=== PATIENT | female | born 1995 | race Caucasian/White ===

== ENCOUNTER 2020-01-01 00:01 | Inpatient (IN) ==
[2020-01-01] MEDS ORDERED: BUTORPHANOL 2 MG/ML VIAL IV PRN (00:10)
[2020-01-01] MEDS ORDERED: MEPERIDINE 50 MG/1 ML VIAL IV PRN (00:10)
[2020-01-01 01:07] LABS: Basophils % 0.2 % (0.0-0.8); Eosinophils # 0.1 10*3/uL (0.0-0.87); Eosinophils % 0.5 % (0.00-10.9); Hematocrit 34.9 VOL% (35.7-47.0); Hemoglobin 11.5 GM/DL (12.0-16.0); Immature Granulocytes % 0.7 %; Immature Granulocytes Absolute 0.08 #; Lymphocytes # 2.2 10*3/uL (1.4-4.0); Lymphocytes % 19.5 % (21.3-54.2); Mean Corpuscular Volume 87.9 FL (87-102); Mean Platelet Volume 11.2 FL (9.6-12.0); Monocytes % 7.2 % (1.7-12.7); Neutrophils % 71.9 % (38.7-73.9); Platelet Count 264 T/CUMM (130-400); Red Blood Count 3.97 MC/CUMM (3.8-5.5); Red Cell Distribution Width 13.3 % (9.3-17.3); White Blood Count 11.4 T/CUMM (4-12)
[2020-01-01 01:20] LABS: INR 0.9; PT Patient Result 9.5 SECS (9.6-12.2); Partial Thromboplastin Time 25.2 SECS (20.8-36.0)
[2020-01-01 01:27] LABS: Alanine Aminotransferase 12 U/L (13-56); Albumin 2.4 G/DL (3.4-5.0); Alkaline Phosphatase 113 U/L (45-117); Aspartate Amino Transferase 13 U/L (0-37); Bilirubin,Total < 0.39 MG/DL (0.2-1.0); Blood Urea Nitrogen 11 MG/DL (7-18); Calcium 9.1 MG/DL (8.5-10.1); Estimated Glom Filtration Rate 152 ML/MIN; Glucose 95 MG/DL (74-106); Total Protein 6.8 G/DL (6.4-8.3)
[2020-01-01] MEDS: ONDANSETRON 4 MG/2 ML VIAL IV PRN ×2 (06:20→14:40)
[2020-01-01] MEDS: LACTATED RINGERS 1,000 ML IV SCH ×2 (08:14→10:28)
[2020-01-01] MEDS ORDERED: diphenhydrAMINE 50 MG/1 ML VIAL IV PRN ×2 (08:19)
[2020-01-01] MEDS ORDERED: CITRIC ACID/SODIUM CITRATE 30 ML UDCUP PO ONE (08:19)
[2020-01-01] MEDS ORDERED: FAMOTIDINE 20 MG/2 ML VIAL IV ONE (08:19)
[2020-01-01] MEDS ORDERED: hydrOXYzine HCL 25 MG/1 ML VIAL IM PRN (08:19)
[2020-01-01] MEDS ORDERED: LACTATED RINGERS 1,000 ML IV ONE (08:19)
[2020-01-01] MEDS ORDERED: PROMETHAZINE 25 MG/1 ML VIAL IM ONE (08:19)
[2020-01-01] MEDS ORDERED: ePHEDrine 50 MG/ML AMP IV PRN (08:19)
[2020-01-01] MEDS ORDERED: NALOXONE 0.4 MG/ML VIAL IV PRN (08:19)
[2020-01-01] MEDS ORDERED: hydrALAZINE 20 MG/1 ML VIAL ONE (08:25)
[2020-01-01] MEDS ORDERED: hydrALAZINE 20 MG/1 ML VIAL IV ONE (08:28)
[2020-01-01] MEDS ORDERED: OXYTOCIN/LR 20 UNIT/1,000 ML BAG IV SCH (08:30)
[2020-01-01] MEDS ORDERED: fentaNYL 2 MCG/ROPIV 0.2% EPID 100 ML EPIDURAL SCH (08:30)
[2020-01-01 11:12] LABS: Apearance,Urine CLEAR (Clear); Bilirubin,Urine Negative (Negative); Blood, Urine Negative (Negative); Glucose,Urine (UA) Negative (Negative); Ketones,Urine Negative (Negative); Mucus,Urine Occasional /LPF (Occasional); Nitrite,Urine Negative (Negative); Protein,Urine Negative; RBC,Urine <1 /HPF (0-4); Urine Color Yellow (Yellow); Urine Specific Gravity 1.009 (1.001-1.035); Urine Urobilinogen < 2.0 EU/DL (0.2-1.0)
[2020-01-01] MEDS ORDERED: CARBOPROST TROMETHAMINE 250 MCG/ML AMP IM ONE (14:53)
[2020-01-01] MEDS ORDERED: miSOPROStoL 200 MCG TABLET ONE (14:53)
[2020-01-01 16:43] LABS: Cord Arterial Blood HCO3 16.1 MMOL/L
[2020-01-01] MEDS ORDERED: LANOLIN 50% CREAM 0.3 OZ TUBE TOP PRN (16:54)
[2020-01-01] MEDS ORDERED: MEASLES/MUMPS/RUBELLA VACCINE 0.5 ML VIAL SUBCUT ONE (16:54)
[2020-01-01] MEDS ORDERED: BISACODYL 10 MG SUPP RECTAL PRN (16:54)
[2020-01-01] MEDS ORDERED: WITCH HAZEL PADS 100/JAR TOP PRN (16:54)
[2020-01-01] MEDS ORDERED: BENZOCAINE 20%/MENTHOL 0.5% SPRAY 56 GM CAN TOP PRN (16:54)
[2020-01-01] MEDS ORDERED: OXYTOCIN/LR 20 UNIT/1,000 ML BAG IV ONE (16:54)
[2020-01-01] MEDS ORDERED: DIPH/TET/ACEL PERT BOOSTER VACCINE 0.5 ML VIAL IM ONE (16:54)
[2020-01-01] MEDS ORDERED: ACETAMINOPHEN 325 MG TABLET PO PRN (16:54)
[2020-01-01] MEDS ORDERED: HYDROCORTISONE 2.5% RECTAL CREAM 30 GM TUBE TOP PRN (16:54)
[2020-01-01] MEDS ORDERED: oxyCODONE/ACETAMINOPHEN 5-325 MG TABLET PO PRN (16:54)
[2020-01-01] MEDS ORDERED: RHO(D) IMMUNE GLOBULIN 300 MCG SYRINGE IM ONE (16:54)
[2020-01-01] MEDS: oxyCODONE/ACETAMINOPHEN 5-325 MG TABLET PO PRN ×2 (17:22→23:00)
[2020-01-01] MEDS: IBUPROFEN 800 MG TABLET PO PRN (18:28)
[2020-01-01] MEDS: DOCUSATE SODIUM 100 MG CAPSULE PO SCH (21:17)
[2020-01-02] MEDS: IBUPROFEN 800 MG TABLET PO PRN ×3 (04:05→17:28)
[2020-01-02 05:05] LABS: Basophils % 0.2 % (0.0-0.8); Eosinophils # 0.1 10*3/uL (0.0-0.87); Eosinophils % 0.6 % (0.00-10.9); Hematocrit 31.1 VOL% (35.7-47.0); Hemoglobin 10.1 GM/DL (12.0-16.0); Immature Granulocytes % 0.8 %; Lymphocytes # 2.4 10*3/uL (1.4-4.0); Lymphocytes % 17.8 % (21.3-54.2); Mean Corpuscular HGB Conc 32.5 GM/DL (32-36); Mean Corpuscular Volume 88.6 FL (87-102); Mean Platelet Volume 11.2 FL (9.6-12.0); Monocytes % 6.8 % (1.7-12.7); Neutrophils % 73.8 % (38.7-73.9); Platelet Count 216 T/CUMM (130-400); Red Blood Count 3.51 MC/CUMM (3.8-5.5); Red Cell Distribution Width 13.5 % (9.3-17.3); White Blood Count 13.3 T/CUMM (4-12)
[2020-01-02] MEDS: DOCUSATE SODIUM 100 MG CAPSULE PO SCH ×2 (08:47→20:26)
[2020-01-02] MEDS: oxyCODONE/ACETAMINOPHEN 5-325 MG TABLET PO PRN (22:13)
[2020-01-03 07:26] VITALS: BP 157/91
[2020-01-03] MEDS: DOCUSATE SODIUM 100 MG CAPSULE PO SCH (09:02)
== END 2020-01-03 13:40 | disposition home or self-care (01) | DRG 807 ==
LOC: N.LDOUT 00:01 → N.LD 00:03 → N.OB 20:23
PROVIDERS: ADMIT Obstetrics & Gynecology; ATTEND Obstetrics & Gynecology

== ENCOUNTER 2022-05-07 11:09 | Inpatient (IN) ==
[2022-05-07] MEDS ORDERED: MEPERIDINE 50 MG/1 ML VIAL IV PRN (11:17)
[2022-05-07] MEDS ORDERED: ONDANSETRON 4 MG/2 ML VIAL IV PRN (11:17)
[2022-05-07] MEDS ORDERED: LIDOCAINE 1% 50 ML VIAL MISC INJ ONE (11:17)
[2022-05-07] MEDS ORDERED: METHYLERGONOVINE 0.2 MG/1 ML AMP IM PRN (11:17)
[2022-05-07] MEDS ORDERED: OXYTOCIN/LR 20 UNIT/1,000 ML BAG IV ONE (11:17)
[2022-05-07] MEDS ORDERED: CARBOPROST TROMETHAMINE 250 MCG/ML AMP IM PRN (11:17)
[2022-05-07] MEDS ORDERED: TRANEXAMIC ACID 1,000 MG in SODIUM CHLORIDE 0.9% 100 ML IV PRN (11:17)
[2022-05-07] MEDS ORDERED: BUTORPHANOL 2 MG/ML VIAL IV PRN (11:17)
[2022-05-07] MEDS ORDERED: miSOPROStoL 200 MCG TABLET RECTAL PRN (11:17)
[2022-05-07 11:50] LABS: Glucose,Urine (UA) Negative (Negative); Ketones,Urine Negative (Negative); Nitrite,Urine Negative (Negative); Protein,Urine Negative (Negative); Urine Appearance Slightly Cloudy (Clear); Urine Color Yellow (Yellow)
[2022-05-07 11:51] LABS: Bilirubin,Urine Negative (Negative); Blood, Urine Negative (Negative); Urine Urobilinogen 0.2 eU/dL (<2.0)
[2022-05-07 11:55] LABS: Amorphous Crystals,Urine Occasional /HPF (Few); Bacteria,Urine Many /HPF (Few); Mucus,Urine Occasional /LPF (Occasional); Squamous Epithelial Cell,Urine Few /HPF (0-10)
[2022-05-07] MEDS ORDERED: ePHEDrine 50 MG/ML VIAL IV PRN (11:58)
[2022-05-07] MEDS ORDERED: diphenhydrAMINE 50 MG/1 ML VIAL IV PRN (11:58)
[2022-05-07] MEDS ORDERED: PROMETHAZINE 25 MG/1 ML VIAL IM PRN (11:58)
[2022-05-07] MEDS ORDERED: NALOXONE 0.4 MG/ML VIAL IV PRN (11:58)
[2022-05-07] MEDS ORDERED: CITRIC ACID/SODIUM CITRATE 30 ML UDCUP PO ONE (11:59)
[2022-05-07] MEDS ORDERED: FAMOTIDINE 20 MG/2 ML VIAL IV ONE (11:59)
[2022-05-07 12:01] LABS: Protein/Creatinine Ratio,Urine 0.3 RATIO
[2022-05-07] MEDS: LACTATED RINGERS 1,000 ML IV SCH ×3 (12:02→14:31)
[2022-05-07 12:07] LABS: Basophils % 0.2 % (0.0-0.8); Eosinophils % 0.3 % (0.00-10.9); Hematocrit 31.7 VOL% (35.7-47.0); Hemoglobin 10.5 GM/DL (12.0-16.0); Immature Granulocytes % 0.7 %; Immature Granulocytes Absolute 0.06 #; Lymphocytes # 1.7 10*3/uL (1.4-4.0); Mean Corpuscular HGB Conc 33.1 GM/DL (32-36); Mean Corpuscular Volume 81.3 FL (87-102); Mean Platelet Volume 10.6 FL (9.6-12.0); Monocytes # 0.4 10*3/uL (0.11-0.8); Monocytes % 4.4 % (1.7-12.7); Neutrophils % 75.4 % (38.7-73.9); Platelet Count 276 T/CUMM (130-400); Red Cell Distribution Width 13.8 % (9.3-17.3); White Blood Count 9.1 T/CUMM (4-12)
[2022-05-07 12:26] LABS: Alanine Aminotransferase 12 U/L (13-56); Albumin 2.4 G/DL (3.4-5.0); Alkaline Phosphatase 97 U/L (45-117); Aspartate Amino Transferase 11 U/L (0-37); Bilirubin,Total < 0.39 MG/DL (0.20-1.00); Blood Urea Nitrogen 9 MG/DL (7-18); Calcium 8.5 MG/DL (8.5-10.1); Carbon Dioxide 22 MMOL/L (21-32); Chloride 107 MMOL/L (98-107); Glucose 108 MG/DL (74-106); Osmolality,Calculated 274.7 MOS/KG (273-304); Potassium 3.3 MMOL/L (3.5-5.1); Sodium 138 MMOL/L (136-145); Total Protein 6.9 G/DL (6.4-8.2)
[2022-05-07 12:27] LABS: INR 0.9; PT Patient Result 9.9 SECS (10.5-12.0); Partial Thromboplastin Time 28.5 SECS (23.7-32.9)
[2022-05-07 12:28] LABS: Bilirubin,Direct < 0.100 MG/DL (0.0-0.20); Uric Acid 3.9 MG/DL (2.6-6.0)
[2022-05-07] MEDS: OXYTOCIN/LR 20 UNIT/1,000 ML BAG IV SCH (12:56)
[2022-05-07] MEDS: fentaNYL 2 MCG/ROPIV 0.2% EPID 100 ML EPIDURAL SCH (14:31)
[2022-05-07 16:27] LABS: Mucus,Urine Occasional /LPF (Occasional); RBC,Urine 1 /HPF (0-4)
[2022-05-07 16:29] LABS: Bilirubin,Urine Negative (Negative); Blood, Urine Negative (Negative); Glucose,Urine (UA) Negative (Negative); Ketones,Urine Trace mg/dL (Negative); Nitrite,Urine Negative (Negative); Protein,Urine Negative (Negative); Urine Appearance Clear (Clear); Urine Color Yellow (Yellow); Urine Specific Gravity 1.015 (1.001-1.035); Urine Urobilinogen 0.2 eU/dL (<2.0)
[2022-05-08] MEDS: OXYTOCIN/LR 20 UNIT/1,000 ML BAG IV SCH (06:19)
[2022-05-08] MEDS: fentaNYL 2 MCG/ROPIV 0.2% EPID 100 ML EPIDURAL SCH ×2 (07:50→14:10)
[2022-05-08] MEDS ORDERED: NIFEdipine 10 MG CAPSULE PO ONE (10:31)
[2022-05-08] MEDS ORDERED: OXYTOCIN/LR 30 UNIT/1,000 ML BAG IV ONE (10:50)
[2022-05-08 11:35] LABS: Cord Arterial Blood HCO3 20.9 MMOL/L
[2022-05-08 11:38] LABS: Cord Venous Blood PO2 30.2
[2022-05-08] MEDS ORDERED: DIPH/TET/ACEL PERT BOOSTER VACCINE 0.5 ML VIAL IM ONE (11:42)
[2022-05-08] MEDS ORDERED: BISACODYL 10 MG SUPP RECTAL PRN (11:42)
[2022-05-08] MEDS ORDERED: BENZOCAINE 20%/MENTHOL 0.5% SPRAY 56 GM CAN TOP PRN (11:42)
[2022-05-08] MEDS ORDERED: ONDANSETRON 4 MG/2 ML VIAL IV PRN (11:42)
[2022-05-08] MEDS ORDERED: HYDROCORTISONE 2.5% RECTAL CREAM 30 GM TUBE TOP PRN (11:42)
[2022-05-08] MEDS ORDERED: OXYTOCIN/LR 20 UNIT/1,000 ML BAG IV ONE (11:42)
[2022-05-08] MEDS ORDERED: RHO(D) IMMUNE GLOBULIN 300 MCG SYRINGE IM ONE (11:42)
[2022-05-08] MEDS ORDERED: LANOLIN 50% CREAM 0.3 OZ TUBE TOP PRN (11:42)
[2022-05-08] MEDS ORDERED: ACETAMINOPHEN 325 MG TABLET PO PRN (11:42)
[2022-05-08] MEDS ORDERED: WITCH HAZEL PADS 100/JAR TOP PRN (11:42)
[2022-05-08] MEDS ORDERED: oxyCODONE/ACETAMINOPHEN 5-325 MG TABLET PO PRN (11:42)
[2022-05-08] MEDS ORDERED: MEASLES/MUMPS/RUBELLA VACCINE 0.5 ML VIAL SUBCUT ONE (11:42)
[2022-05-08] MEDS: oxyCODONE/ACETAMINOPHEN 5-325 MG TABLET PO PRN ×2 (12:01→19:25)
[2022-05-08] MEDS: IBUPROFEN 800 MG TABLET PO PRN (14:17)
[2022-05-08] MEDS: DOCUSATE SODIUM 100 MG CAPSULE PO SCH ×2 (19:25→23:49)
[2022-05-08] MEDS ORDERED: POTASSIUM CHLORIDE 20 MEQ TABLET PO ONE (23:52)
[2022-05-09] MEDS: IBUPROFEN 800 MG TABLET PO PRN ×3 (00:10→17:18)
[2022-05-09] MEDS: oxyCODONE/ACETAMINOPHEN 5-325 MG TABLET PO PRN ×2 (04:54→20:36)
[2022-05-09 06:08] LABS: Basophils % 0.1 % (0.0-0.8); Eosinophils # 0.1 10*3/uL (0.0-0.87); Eosinophils % 1.4 % (0.00-10.9); Hematocrit 26.8 VOL% (35.7-47.0); Hemoglobin 8.5 GM/DL (12.0-16.0); Immature Granulocytes % 0.8 %; Immature Granulocytes Absolute 0.07 #; Lymphocytes # 1.9 10*3/uL (1.4-4.0); Lymphocytes % 22.1 % (21.3-54.2); Mean Corpuscular HGB Conc 31.7 GM/DL (32-36); Mean Corpuscular Volume 85.6 FL (87-102); Mean Platelet Volume 11.2 FL (9.6-12.0); Monocytes # 0.7 10*3/uL (0.11-0.8); Monocytes % 7.6 % (1.7-12.7); Platelet Count 193 T/CUMM (130-400); Red Blood Count 3.13 MC/CUMM (3.8-5.5); Red Cell Distribution Width 13.8 % (9.3-17.3); White Blood Count 8.6 T/CUMM (4-12)
[2022-05-09] MEDS: FERROUS SULFATE 325 MG TABLET PO SCH ×2 (09:00→20:37)
[2022-05-09] MEDS: DOCUSATE SODIUM 100 MG CAPSULE PO SCH ×2 (09:00→20:37)
[2022-05-10] MEDS: IBUPROFEN 800 MG TABLET PO PRN (01:28)
[2022-05-10] MEDS ORDERED: ONDANSETRON ODT 4 MG TABLET PO PRN (06:19)
[2022-05-10] MEDS ORDERED: ONDANSETRON 4 MG TABLET PO PRN (06:19)
[2022-05-10] MEDS: FERROUS SULFATE 325 MG TABLET PO SCH (08:44)
[2022-05-10] MEDS: DOCUSATE SODIUM 100 MG CAPSULE PO SCH (08:44)
[2022-05-10 10:13] VITALS: BP 132/80
== END 2022-05-10 10:40 | disposition home or self-care (01) | DRG 807 ==
LOC: N.LD 11:09 → N.OB 05-08 14:30
PROVIDERS: ADMIT Obstetrics & Gynecology; ATTEND Obstetrics & Gynecology